=== PATIENT | male | born 1960 | race Caucasian/White ===

== ENCOUNTER 2020-12-13 08:34 | Observation (INO) ==
[~2020-12-13 08:34] MED LIST: Buffered Lidocaine 1% SYRIN 1 ml INTRADERM ONE; DiMENhydriNATE IV 50 mg/ml 1 ml VIAL IV PUSH ONE; Lactated Ringers 1000 ml BAG 1,000 ML IV SCH
[2020-12-13] MEDS ORDERED: Ketamine HCL 50 mg/ml 10 ml VIAL (500 MG) ONE (08:47)
[2020-12-13] MEDS ORDERED: Phenylephrine IV 10 MG/ML 1 ml VIAL ONE (08:47)
[2020-12-13] MEDS ORDERED: Lidocaine 2% PF 5 ML VIAL ONE ×2 (08:47→08:50)
[2020-12-13] MEDS ORDERED: Glycopyrrolate IV 0.2 MG/ML 1 ML VIAL ONE (08:47)
[2020-12-13] MEDS ORDERED: Ondansetron 4 mg VIAL 2 MG/ML 2 ml VIAL ONE (08:47)
[2020-12-13] MEDS ORDERED: Propofol 10 MG/ML 20 ML BTL ONE ×2 (08:47→11:31)
[2020-12-13] MEDS ORDERED: ceFAZolin 2 GM PREMIX 2 GM/50 ML BAG ONE (08:54)
[2020-12-13] MEDS ORDERED: DiMENhydriNATE IV 50 mg/ml 1 ml VIAL ONE (08:55)
[2020-12-13] MEDS ORDERED: Midazolam 2 mg/2 ml VIAL 1 mg/ml 2 ml VIAL (2 mg) ONE (08:58)
[2020-12-13] MEDS ORDERED: Dexamethasone IV 4 MG/ML VIAL 1 ml VIAL ONE (08:59)
[2020-12-13] MEDS ORDERED: fentaNYL 100 mcg/2 ml 50 MCG/ML VIAL ONE (08:59)
[2020-12-13] MEDS ORDERED: Bupivacaine 0.5% SDV PF 30ML VIAL ONE (08:59)
[2020-12-13] MEDS ORDERED: Ropivacaine 5 MG/ML 20 ML VIAL 0.5% (100 MG) ONE (09:12)
[2020-12-13] MEDS ORDERED: diPHENhydraMINE IV 50 MG/ML 1 ml VIAL (BENADRYL) IV PRN (12:36)
[2020-12-13] MEDS ORDERED: Magnesium Hydroxide LIQ 30 ML UDC PO PRN (12:36)
[2020-12-13] MEDS ORDERED: Ondansetron ODT 4 mg TAB 4 MG TAB PO PRN (12:36)
[2020-12-13] MEDS ORDERED: Morphine 2 MG/ML SYRINGE IV PRN (12:36)
[2020-12-13] MEDS ORDERED: diPHENhydraMINE 25 mg TAB PO PRN (12:36)
[2020-12-13] MEDS ORDERED: Lactulose 30 ml UDC PO PRN (12:36)
[2020-12-13] MEDS ORDERED: Ondansetron 4 mg VIAL 2 MG/ML 2 ml VIAL IV PRN (12:36)
[2020-12-13] MEDS ORDERED: Dextrose 50% Syringe 50 ml 25 GM/50 ML SYRINGE IV PUSH PRN (13:34)
[2020-12-13] MEDS: Lactated Ringers 1000 ml BAG 1,000 ML IV SCH (13:52)
[2020-12-13] MEDS ORDERED: Gabapentin 600 mg TAB (NF) PO SCH (14:00)
[2020-12-13] MEDS ORDERED: Canagliflozin 300 mg TAB (NF) PO SCH (18:00)
[2020-12-13] MEDS: ceFAZolin 1 GM ADVAN 1 GM in NS 0.9% 50 ML 50 ML IVPB SCH (18:22)
[2020-12-13] MEDS: RANOLAZINE 500 MG PO SCH (20:33)
[2020-12-13] MEDS: ICOSAPENT ETHYL 1 GM CAPSULE (NF) PO SCH (20:34)
[2020-12-13] MEDS: Magnesium Hydroxide LIQ 30 ML UDC PO SCH (20:34)
[2020-12-14] MEDS: Lactated Ringers 1000 ml BAG 1,000 ML IV SCH (00:03)
[2020-12-14] MEDS: ceFAZolin 1 GM ADVAN 1 GM in NS 0.9% 50 ML 50 ML IVPB SCH ×2 (02:27→10:09)
[2020-12-14] MEDS: RANOLAZINE 500 MG PO SCH (08:19)
[2020-12-14] MEDS: Magnesium Hydroxide LIQ 30 ML UDC PO SCH (08:30)
[2020-12-14] MEDS: ICOSAPENT ETHYL 1 GM CAPSULE (NF) PO SCH (08:30)
[2020-12-14] MEDS ORDERED: DULoxetine DR 60 mg CAP PO SCH (09:00)
[2020-12-14] MEDS ORDERED: Vitamin THERAPEUTIC TAB PO SCH (09:00)
[2020-12-14] MEDS ORDERED: Aspirin EC 81 mg TAB.EC (enteric coated) PO SCH (09:00)
[2020-12-14] MEDS ORDERED: Isosorbide Mononit ER 30mg TAB PO SCH (09:00)
[2020-12-14 11:10] VITALS: BP 117/69
[2020-12-14 11:19] LABS: Hematocrit 34 % (42-52); Hemoglobin 11.4 g/dL (14.0-18.0); Mean Platelet Volume 7.9 fL (7.4-10.4); Platelet Count 173 10^3/uL (150-450)
[2020-12-14 11:30] LABS: Calcium 8.9 mg/dL (8.6-10.3); Potassium 4.5 mmol/L (3.5-5.0)
[2020-12-14 11:36] LABS: EGFR African American 84.4 (>60); EGFR Non-African American 69.7 (>60)
== END 2020-12-14 13:44 | disposition home or self-care (01) ==
LOC: INTOOBSV 08:34 → AA 08:34 → SSU 14:01
PROVIDERS: ADMIT Orthopaedic Surgery Adult Reconstructive Orthopaedic Surgery; ATTEND Orthopaedic Surgery Adult Reconstructive Orthopaedic Surgery